=== PATIENT | male | born 1975 | race Caucasian/White ===

== ENCOUNTER 2018-05-24 10:56 | Emergency (ER) | payer BC ==
[2018-05-24 12:00] LABS: #Basophils 0.1 thou/uL (0.0-0.2); #Eosinphils 0.2 thou/uL (0.0-0.7); #Lymphocytes 1.4 thou/uL (1.20-3.40); #Monocytes 0.8 thou/uL (0.11-0.59); #Neutrophils 4.5 thou/uL (1.40-6.50); %Basophils 1.8 % (0.0-1.0); %Eosinophils 2.6 % (0.0-10.0); %Lymphocytes 19.4 % (21.0-51.0); %Monocytes 11.9 % (0.0-10.0); %Neutrophils 64.4 % (42.0-75.0); Hemoglobin 18.9 g/dL (14.0-18.0); Mean Corpuscular HGB CONC 31.7 g/dL (32.0-36.0); Mean Corpuscular Hemoglobin 27.7 pg (27.0-31.0); Mean Corpuscular Volume 87.4 fL (78.0-98.0); Mean Platelet Volume 8.4 fL (7.4-10.4); Platelet Count 245 thou/uL (130-400); RBC Distribution Width 12.3 % (11.5-14.5); Red Blood Cell (RBC) Count 6.85 mill/uL (4.70-6.10); White Blood Cell (WBC) Count 7.1 thou/uL (4.8-10.8)
[2018-05-24 12:14] LABS: ALT (SGPT) 29 U/L (8-55); AST (SGOT) 21 U/L (5-34); Albumin 4.6 g/dL (3.5-5.0); Alkaline Phosphatase 63 U/L (40-150); Anion Gap 12 mmol/L (10-20); BUN (Urea Nitrogen) 15 mg/dL (8.9-20.6); Bilirubin, Total 0.8 mg/dL (0.2-1.2); Calc. Creatinine Clearance 0 mL/min (70-130); Calcium 9.7 mg/dL (7.8-10.44); Carbon Dioxide 27 mmol/L (22-29); Chloride 104 mmol/L (98-107); Estimated GFR-MDRD 58; Globulin 3.8 g/dL (2.4-3.5); Glucose 97 mg/dL (70-105); Potassium 4.2 mmol/L (3.5-5.1); Protein, Total 8.4 g/dL (6.0-8.3); Sodium 139 mmol/L (136-145)
[2018-05-24 12:16] LABS: CKMB 1.1 ng/mL (0-6.6); Troponin I Less than 0.010 ng/mL (< 0.028)
--- NOTE | 2018-05-24 12:26 | RAD ---
PORTABLE CHEST: History: Chest pain FINDINGS: Lungs are clear. No infiltrate or effusion. Heart and mediastinum unremarkable. IMPRESSION: No acute abnormality. POS: [id number]
[2018-05-24] MEDS ORDERED: Nitroglycerin 0.4 MG TAB (25 Tab Bottle) ONE (12:35)
== END 2018-05-24 13:26 | disposition home or self-care (01) ==
LOC: SCSER 10:56
DX: R07.89 Other chest pain (principal); I10 Essential (primary) hypertension; Z87.891 Personal history of nicotine dependence; Z79.899 Other long term (current) drug therapy
CPT/HCPCS: 71045; 80053; 82553; 84484; 85025; 93005